=== PATIENT | male | born 1940 | race Caucasian/White ===

== ENCOUNTER 2020-01-02 08:26 | Day surgery (SDC) | payer MEDICARE, OTHER ==
[~2020-01-02] VITALS: Ht 182.9 cm; Wt 98.3 kg
[~2020-01-02 08:26] MED LIST: AMLO5 PO; Aspir 8181 MG; DONE10; DULOXETINE; GLIP10 PO; HYDCHL25 PO; LEVSOD100 PO; LEVSOD150; LIPITOR; LISI20 PO; LOSARTAN; LOVA20 PO; METF850 PO; PIOG30 PO; SERT50 PO; TIMO.5OPSO BOTHEYES; TRAZ100 PO
--- NOTE | 2020-01-02 10:05 | NUR ---
01/02/20 1005 [employer] PATIENT DETERMINED TO BE ASA APPROPRIATE FOR PROPOFOL SEDATION PRIOR TO START OF PROCEDURE BY 3-LEAD EKG REVIEWED WITH PHYSICIAN PRIOR TO START OF PROCEDURE.Patient to ENDO 1History, Chart, Medications and Allergies reviewed before start of procedure.MONITOR INTACT WITH CONTINUOUS PULSE OXIMETRY AND INTERMITTENT BP.O2 VIA N/C INTACT THROUGHOUT SEDATION/PROCEDURE.
--- NOTE | 2020-01-02 11:19 | NUR ---
Patient up to Ambulate independently. Gait steady. Discharge instructions reviewed with patient. Patient verbalizes understanding. Copy given to patient to take home. Discharged via wheelchair to private car for ride home.
== END 2020-01-02 11:30 | disposition home or self-care (01) ==
LOC: ORSCMMR 08:26 → ORD 09:30 → ORSCMMR 09:30
PROVIDERS: Internal Medicine Gastroenterology
PROC: 0DJD8ZZ Inspection of Lower Intestinal Tract, Via Natural or Artificial Opening Endoscopic (ICD-10-PCS; principal; 2020-01-02 09:30)
DX: Z12.11 Encounter for screening for malignant neoplasm of colon (principal); K57.30 Diverticulosis of large intestine without perforation or abscess without bleeding; Z86.010 Personal history of colon polyps; E11.9 Type 2 diabetes mellitus without complications; I10 Essential (primary) hypertension; E78.00 Pure hypercholesterolemia, unspecified; E03.9 Hypothyroidism, unspecified; F32.9 Major depressive disorder, single episode, unspecified; Z79.84 Long term (current) use of oral hypoglycemic drugs; Z79.899 Other long term (current) drug therapy
CPT/HCPCS: 82947; J2704; J7120

== ENCOUNTER 2021-07-17 06:16 | Day surgery (SDC) | payer MEDICARE, OTHER ==
[~2021-07-17] VITALS: Ht 182.9 cm; Wt 99.7 kg
== END 2021-07-17 08:20 | disposition home or self-care (01) ==
LOC: ORSCSDS 06:16
PROVIDERS: Ophthalmology
PROC: 08RK3JZ Replacement of Left Lens with Synthetic Substitute, Percutaneous Approach (ICD-10-PCS; principal; 2021-07-17 07:30)
DX: H25.12 Age-related nuclear cataract, left eye (principal); I10 Essential (primary) hypertension; I25.10 Atherosclerotic heart disease of native coronary artery without angina pectoris; E11.9 Type 2 diabetes mellitus without complications; E03.9 Hypothyroidism, unspecified; Z79.899 Other long term (current) drug therapy; Z79.84 Long term (current) use of oral hypoglycemic drugs
CPT/HCPCS: 82947; J2001; J2250; J3010; J3301; J7040; V2632

== ENCOUNTER 2021-07-31 08:50 | Day surgery (SDC) | payer MEDICARE, OTHER ==
[~2021-07-31] VITALS: Ht 182.9 cm; Wt 100.5 kg
--- NOTE | 2021-07-31 09:14 | NUR ---
07/31/21 0914 VAL[facility]INA [place] TETRACAINE DROP INSTILLED AT 0904 PLEDGETT INSERTED AT 0905
--- NOTE | 2021-07-31 10:59 | NUR ---
07/31/21 4755 SAGAR SCHULTZ PT HAD SOME SKIN ABRASIONS ON FORHEAD OF FACE AND LIPS FROM A PRE CANCER TX PRIOR TO TODAYS PROCEDURE. PT C/O SOME DISCOMFORT WHEN LAYING ON HIS BACK DURING PROCEDURE WHEN HE BREATHED- PT STATED IT WAS FROM NASAL CONGESTION THAT HE GETS FROM LYING ON HIS BACK. LUNGS WERE CLEAR TO ASCULATION. EDUCATIOJN PROVIDED FOR DEEP BREATHING EXERCISES UPON DC
== END 2021-07-31 10:50 | disposition home or self-care (01) ==
LOC: ORSCSDS 08:50
PROVIDERS: Ophthalmology
PROC: 08RJ3JZ Replacement of Right Lens with Synthetic Substitute, Percutaneous Approach (ICD-10-PCS; principal; 2021-07-31 10:00)
DX: H25.11 Age-related nuclear cataract, right eye (principal); I10 Essential (primary) hypertension; I25.10 Atherosclerotic heart disease of native coronary artery without angina pectoris; K21.9 Gastro-esophageal reflux disease without esophagitis; E11.9 Type 2 diabetes mellitus without complications; E03.9 Hypothyroidism, unspecified; Z79.899 Other long term (current) drug therapy; Z79.84 Long term (current) use of oral hypoglycemic drugs
CPT/HCPCS: 82947; J2001; J2250; J3010; J3301; J7040; V2632

== ENCOUNTER → 2025-07-10 | Outpatient (CLI) | payer MEDICARE, OTHER | LOC: PLD 07:53 → LAB SHORT 07:53 → LAB 07:53 | DX: L60.2 Onychogryphosis (principal); B35.1 Tinea unguium | CPT/HCPCS: 88305; 88312 ==